=== PATIENT | female | born 1960 | race Caucasian/White ===

== ENCOUNTER 2020-05-30 11:33 | Observation (INO) | payer OTHER ==
[~2020-05-30] VITALS: Ht 165.1 cm; Wt 104.8 kg
[2020-05-30] VITALS (12 sets, daily range): BP systolic 145–171; BP diastolic 63–87
--- NOTE | ~2020-05-30 | D ---
[address] [address] DISCHARGE SUMMARY Name: DEVEN GUNN Room: [address] Kristopher#: [id number] Admission: 05/30/20 Attend Phys: Ciro Lal MD Discharge: 05/31/20 Date of : 60 Report #: [id number] THIS REPORT FOR: cc: Edgard Garcia. Edgard Dey. KENY ~ Ciro Lal MD [facility] DATE OF SERVICE: 05/31/2020 DISCHARGE DIAGNOSES: 1. Coronary artery disease. 2. Unstable angina. 3. Dyslipidemia. 4. Percutaneous coronary intervention to the diagonal branch of the left anterior descending coronary artery. PROCEDURES DURING HOSPITALIZATION: 1. Coronary angiography. 2. Left heart catheterization. 3. Percutaneous coronary intervention to the diagonal branch of the left anterior descending coronary artery. HOSPITAL COURSE: The patient was brought to the cardiac catheterization laboratory on 05/30/2020 electively with complaints of progressive exertional chest discomfort and shortness of breath, consistent with unstable angina. The patient underwent cardiac catheterization with coronary angiography that revealed a 95% stenosis of a large branched first diagonal branch of the left anterior descending coronary artery. The remaining coronary vessels were without significant stenosis. The patient underwent percutaneous coronary intervention with 2 drug-eluting stents placed to the ostial to proximal portion of the first diagonal vessel without complication. The patient's post-intervention recovery was unremarkable and she is being discharged to home in stable condition. DISCHARGE MEDICATIONS: Will include aspirin 81 mg daily, atorvastatin 40 mg daily, Effient 10 mg daily, Flexeril 10 mg a half a tablet p.r.n. muscle spasms, Benadryl 25 mg daily, iron sulfate one tablet b.i.d., hydroxyzine 10 mg t.i.d. p.r.n., Synthroid 125 mcg daily, lisinopril 20 mg daily, melatonin 10 mg as directed, glucosamine chondroitin complex as directed, Bystolic 10 mg daily, Prilosec 20 mg b.i.d., potassium chloride 20 mEq daily, Zoloft 100 mg daily, Carafate 1 gram b.i.d., trospium ER [place] [address] DISCHARGE SUMMARY Name: MIGUEL GUNNA Alyssia Room: [address] MBuddyRuBddy#: [id number] Admission: 05/30/20 Attend Phys: Ciro Lal MD Discharge: 05/31/20 Date of : 60 Report #: [id number] DISPOSITION: The patient will follow up with Cardiology office in 2 weeks. By: 1730 1739[facility] Park[facility]haval Lal MD, [facility] /nt
--- NOTE | ~2020-05-30 | H ---
[address] [address] HISTORY AND PHYSICAL Name: DEVEN GUNN Room: [address] Gianfranco Summers#: [id number] Admission: 05/30/20 Attend Phys: Ciro Lal MD Discharge: 05/31/20 Date of : 60 Report #: [id number] THIS REPORT FOR: cc: Edgard Garica. Edgard Dey. KENY ~ [facility],Medical Records Staff Please refer to the History and Physical performed in the physician's office. By: 1444Medical Records Staff [facility] /PRETTY
[~2020-05-30 11:33] MED LIST: ACETAMINOPHEN-1 EAC3 PO; ASPIR 8181 MG PO; ASPIRIN EC81 M1 PO; ASPIRIN81 M2 PO; AUGMENTIN 875875 M1 PO; BENADRYL25 MG PO; BYSTOLIC 5 MG5 M1 PO; BYSTOLIC10 MG PO; CARAFATE 1 GM TA1 G1 PO; CHLORTHALIDONE25 MG PO; COMPAZINE10 M1; COMPAZINE10 MG PO; CRANBERRY400 MG PO; EZFE 200200 MG PO; FAMOTIDINE 20 M20 MG PO; FIORICET 50-321 EACH PO; FIORINAL 50-321 EACH PO; FISH OIL 1,0001 EAC5 PO; FISH OIL 1,001000 M1 PO; FISH OIL 1,2001 EAC3 PO; FLEXERIL PO; GLUCOSAMINE &1 EAC1 PO; HYDROXYZINE HCL10 M2 PO; KLOR-CON M2020 MEQ PO; LEVOXYL88 MCG PO; LIPITOR40 MG PO; LISINOPRIL20 MG PO; LISINOPRIL40 MG PO; MECLIZINE HCL25 M1 PO; MEDROLDOSEPACK PO; MELATONIN10 M3 PO; NAPROSYN500 MG PO; NORCO 5-325 TA1 EACH PO; NORCO 7.5-3251 EACH PO; OMEPRAZOLE 20 M20 M1 PO; PRINIVIL40 MG PO; PROTONIX40 M2 PO; REGLAN 10 MG TA10 M1 PO; SANCTURA XR60 M1 PO; SANCTURA XR60 M2 PO; SLOW RELEASE I140 MG PO; SLOW RELEASE I142 MG PO; SYNTHROID125 MC1 PO; TYLENOL ALLERG1 EA11; TYLENOL PM PO; ULTRAM 50MG TAB50 MG PO; ZOLOFT100 MG; ZOLOFT100 MG PO
[2020-05-30 12:41] LABS: HEMATOCRIT 42.3 % (37.0-47.0); HEMOGLOBIN 14.2 gm/dL (12.0-15.0); MCHC 33.7 g/dL (28.0-37.0); MCV 89.1 fL (80.0-100.0); MPV 7.3 fl. (7.2-11.1); RBC 4.74 mil/uL (4.20-5.00); RDW-CV 13.8 % (10.5-14.5); WBC 6.3 thou/uL (4.0-11.0)
[2020-05-30 12:45] LABS: APTT 23.7 Seconds (25.0-31.3); PROTIME 10.9 Seconds (9.20-11.50)
[2020-05-30 12:50] LABS: ALBUMIN 3.8 g/dL (3.4-5.0); ALKALINE PHOSPHATASE 108 U/L (46-116); ANION GAP 8 mmol/L (7-16); BUN 13 mg/dL (7-18); CALCIUM 9.7 mg/dL (8.5-10.1); CHLORIDE 102 mmol/L (98-107); CHOLESTEROL 267 mg/dL (<200); CO2 28 mmol/L (21-32); CREATININE 1.1 mg/dL (0.6-1.3); GLUCOSE 89 mg/dL (70-99); HDL CHOLESTEROL 64 mg/dL (>40); LDL CHOLESTEROL 174 mg/dL (<100); POTASSIUM 3.8 mmol/L (3.5-5.1); SGOT 14 U/L (15-37); SGPT 16 U/L (30-65); SODIUM 138 mmol/L (136-145); TC:HDL 4.2 Ratio (Not establshd); TOTAL BILIRUBIN 0.6 mg/dL (<0.1-1.0); TOTAL PROTEIN 7.6 g/dL (6.4-8.2); TRIGLYCERIDE 145 mg/dL (<150); VLDL 29 mg/dL (<40)
[2020-05-30 12:55] LABS: SERUM ASSESSMENT S
--- NOTE | 2020-05-30 16:21 | EKG ---
[place] [address] ELECTROCARDIOGRAM REPORT Name: DEVEN GUNN Room: [address]R.#: [id number] Admission: 05/30/20 Attend Phys: Ciro Lal, Discharge: Date of : 60 Date of Service: 05/30/20 1258 Report #: [id number] THIS REPORT FOR: //name// [facility] Test Date: 2020-05-30 Test Time: 12:58:47 Pat Name: DEVEN GUNN Department: Room: [facility] Gender: F Negative Cleaner: : 1960 Requested By: Ciro Lal Order Number: [id number] Giselle MD: Jabari Puentes Measurements Intervals [place] Rate: 68 P: 38 MN: 214 QRS: -37 QRSD: 165 T: 118 QT: 481 QTc: 512 Interpretive Statements Sinus rhythm Prolonged [place] interval Left bundle branch block Compared to ECG 10/21/2012 17:13:06 First degree AV block now present Left bundle-branch block now present Electronically Signed On 05-30-2020 16:21:18 PAPER PRODUCTS SUPERVISOR by Jabari Puentes [email or web address] <ELECTRONICALLY SIGNED> By: Jabari Puentes MD, [facility] 05/30/20 1621 1258 1258 Jabari Puentes MD, [facility] /EPI
--- NOTE | 2020-05-30 16:22 | EKG ---
[place] [address] ELECTROCARDIOGRAM REPORT Name: DEVEN GUNN Room: [address]R.#: [id number] Admission: 05/30/20 Attend Phys: Ciro Lal, Discharge: Date of : 60 Date of Service: 05/30/20 1443 Report #: [id number] THIS REPORT FOR: //name// [facility] Test Date: 2020-05-30 Test Time: 14:43:41 Pat Name: DEVEN GUNN Department: Room: [facility] Gender: F Talend Developer: RUIZ : 1960 Requested By: Ciro Lal Order Number: [id number] Giselle MD: Jabari Puentes Measurements Intervals [place] Rate: 65 P: 63 WI: 215 QRS: -36 QRSD: 160 T: 124 QT: 516 QTc: 537 Interpretive Statements Sinus rhythm Prolonged [place] interval Left bundle branch block Compared to ECG 05/30/2020 12:58:47 No significant changes Electronically Signed On 05-30-2020 16:22:41 RN ASSESSMENT by Jabari Puentes [email or web address] <ELECTRONICALLY SIGNED> By: Jabari Puentes MD, [facility] 05/30/20 1622 1443 1443 Jabari Puentes MD, [facility] /EPI
[2020-05-31] VITALS: BP 135/77
--- NOTE | 2020-05-31 02:15 | NUR ---
PATIENT HAS REMAINED ALERT AND ORIENTED X 4 THROUGHOUT THE SHIFT AND RESTING QUIETLY ON HOURLY ROUNDS. UP TO BR TO VOID WITH STEADY GAIT. DRESSING RIGHT GROIN UNCHANGED OF THIS WRITING FROM SHIFT START. MIN SOFT BRUISE DISTAL OF CATH SITE AND SCANT SEROSANGUINEOUS DRAINAGE ON GAUZE. EQUAL BILAT PEDAL AND RADIAL PULSES PRESENT. DENIES CHEST PAIN. VITAL SIGNS STABLE ON ROOM AIR. SR/BBB ON MONITOR. CONTINUE TO MONITOR.
[2020-05-31 04:00] VITALS: BP 142/81
[2020-05-31 05:51] LABS: HEMATOCRIT 36.7 % (37.0-47.0); HEMOGLOBIN 12.4 gm/dL (12.0-15.0); MCH 30.2 pg (26.0-34.0); MCHC 33.9 g/dL (28.0-37.0); MCV 89.1 fL (80.0-100.0); MPV 7.4 fl. (7.2-11.1); RBC 4.12 mil/uL (4.20-5.00); RDW-CV 13.5 % (10.5-14.5); WBC 5.9 thou/uL (4.0-11.0)
[2020-05-31 06:10] LABS: ALBUMIN 3.1 g/dL (3.4-5.0); CALCIUM 9.3 mg/dL (8.5-10.1); CREATININE 1.1 mg/dL (0.6-1.3); POTASSIUM 3.8 mmol/L (3.5-5.1); TOTAL BILIRUBIN 0.6 mg/dL (<0.1-1.0); TOTAL PROTEIN 6.4 g/dL (6.4-8.2)
--- NOTE | 2020-05-31 06:58 | NUR ---
NO CHANGE IN PREVIOUS END OF SHIFT NOTE.
[2020-05-31 08:00] VITALS: BP 146/68
--- NOTE | 2020-05-31 08:51 | NUR ---
CM SPOKE TO THE PT TO DISCUSS CM ASSESSMENT. PT A&O, INDEPENDENT WITH ADL'S, ACTIVE, AND WORKS OUTSIDE THE HOME. PT RESIDES AT HOME WITH SPOUSE. PT USES 0 DME. PT HAS 0 HX OF HH OR SNF. NO CM D/C PLANNING NEEDS ANTICIPATED. CM WILL REMAIN AVAILABLE TO ASSIST AND FOLLOW NEEDED.
[2020-05-31] MEDS ORDERED: NITROGLYCERIN0.4 MG SUBLING (09:36)
[2020-05-31] MEDS ORDERED: EFFIENT10 MG PO (09:36)
--- NOTE | 2020-05-31 10:15 | CARD ---
[address] [address] CARDIAC CATH REPORT Name: DEVEN GUNN Room: [address] M.RBuddy#: [id number] Admission: 05/30/20 Attend Phys: Ciro Lal MD Discharge: Date of : 60 Report #: [id number] THIS REPORT FOR: cc: Edgard Garcia. Edgard Dey. KENY ~ Jabari Puentes MD [facility] APPROVED REPORT Study performed: 05/30/2020 12:47:18 Patient Details Patient Status: Out-Patient Room #: The patient is a 60 year-old female Event Personnel Robb Garnett RTR Monitor, Meliza Hurt RTR Scrub, Janette De Dios RN RN, Ciro Lal Nurse Instructor, Jabari Puentes Autocad Electrical Designer Procedures Performed Left Heart Cath w/or w/o Coronaries [id number] [facility] IRENE Place w/wo Plasty Addl BR DIAG 1 C9601 DESADDL Hemostasis w/ Angioseal Indication Positive stress test Risk Factors Hypercholesterolemia, Hypertension Admission/Lab Medications/Medications given during procedure Lidocaine Subcut 20 ml, Fentanyl IV 25 mcg, Midazolam (Versed) IV 1 mg, Adenosine IV 6 mg, Angiomax IV 16 ml, Angiomax IV 16 ml, Angiomax IV 37 ml per hr, Nitroglycerin IC 200 mcg, Effient PO 60 mg, Aspirin PO 325 mg Procedure Narrative The patient was brought electively to the Cardiac Catheterization Laboratory and was prepped and draped in a sterile manner. The right femoral was infiltrated with 2% Lidocaine subcutaneous anesthesia. A [place] 6 FR sheath was inserted into the right femoral artery. Coronary angiography was performed using coronary diagnostic catheters. The right coronary system [place] [address] CARDIAC CATH REPORT Name: DEVEN GUNN Room: [address] M.R.#: [id number] Admission: 05/30/20 Attend Phys: Ciro Lal MD Discharge: Date of : 60 Report #: [id number] a Diagnostic JR4 6Fr catheter. The left coronary system was accessed and visualized with a Diagnostic JL4 6Fr catheter. The left ventricle was accessed and visualized with a Diagnostic Pigtail 6Fr catheter. Left ventricular/Aortic Valve gradient assessed via catheter pullback. Left ventriculogram was performed in MCCORD projection. Pre-demployment femoral angiogram was performed . Closure device was deployed with a 6 Fr Angioseal. The patient tolerated the procedure well and there were no complications associated with the procedure. There was no hematoma. Intraoperative Conscious Sedation Sedation start time: 1320 Case end Time: 1410 Fentanyl 50 mcg Versed 2 mg Fluoro Time: 13.6 minutes Dose: DAP [id number] cGycm2 3028.63 mGy Contrast Type and Amount: Visipaque 320 ml Diagnostic Cath Left Main 0% narrowing LAD 40% proximalmid LAD stenosis with 90% proximal first diagonal stenosis Circumflex Nondominant vessel with 30% mid vessel narrowing Right Coronary Dominant vessel with 40% ostial proximal narrowing and 30% narrowing at the acute margin Left Ventriculography The left ventricle is normal in size with normal contractility. The left ventricular ejection fraction is estimated to be 55%. Left ventricular wall motion abnormalities are not present. There is no mitral insufficiency. Hemodynamics The aortic pressure is 140/79 mmHg with a mean of 96 mmHg. The left ventricular pressure is 146/78 mmHg with a mean of mmHg. The left ventricular end diastolic pressure is 20 mmHg. There was no gradient across the aortic valve upon pullback. PCI Technique Lesion Anticoagulation was achieved with Angiomax. Patient was preloaded with Angiomax IV 16 ml. Percutaneous coronary intervention was performed on the first diagnonal branch segment. The lesion stenosis prior to intervention was 90% with JOSE MANUEL 3 flow. A 6F XB LAD 3.5 Guide Catheter was used to engage the Left ostium. A IG: OLIVIER 190[address] [place] [address] CARDIAC CATH REPORT Name: DEVEN GUNN Room: [address] M.R.#: [id number] Admission: 05/30/20 Attend Phys: Ciro Lal MD Discharge: Date of : 60 Report #: [id number] Interventional Guidewire was used to cross the lesion. BALLOON DILATION A Balloon catheter Mini Trek RX 2.0 X 8 was inserted and inflated up to 8.00atm for 8seconds. Additional Inflation: 10.00atm for 10seconds. Additional Inflation: 14.00atm for 10seconds. STENT DEPLOYMENT A drug-eluting stent Carlos RX Stent 2.0X8mm was inserted and inflated up to 10.00atm for 8seconds. Additional Inflation: 14.00atm for 15seconds. Additional Inflation: 14.00atm for 9seconds. An additional Drug-Eluting Stent CARLOS RX Stent 2.0X8mm was inserted and inflated up to 8.00atm for 9 seconds. Additional Inflation: 10.00atm for 6 seconds. Additional Inflation: 12.00atm for 7 seconds Final angiography reveals 10 % stenosis with JOSE MANUEL 3 flow. Conclusion 1. Significant coronary artery disease characterized by the following: A 40% proximalmid LAD stenosis with 90% proximal first diagonal stenosis B 30% narrowing in the midportion of the nondominant circumflex C 40% ostial proximal right coronary narrowing with 30% narrowing at the acute margin of this dominant vessel 2. Normal left ventricular systolic function, estimated ejection fraction 55% 3. Moderate elevation of left ventricular end-diastolic pressure at rest 4. Successful PCI with deployment of 2 drug-eluting stents at the site of 90% proximal first diagonal stenosis with 10% residual narrowing and JOSE MANUEL-3 flow to the distal vessel Recommendations Cardiac Risk Reduction Program Aggressive Medical [place] [address] CARDIAC CATH REPORT Name: DEVEN GUNN Room: [address] Gianfranco Summers#: [id number] Admission: 05/30/20 Attend Phys: Ciro Lal MD Discharge: Date of : 60 Report #: [id number] Aspirin (any) Prasugrel Diagnostic Cath Approved by: Ciro Lal MD Date/Time: 05/31/2020 10:14:16 <ELECTRONICALLY SIGNED> By: Jabari Puentes MD, FACC 05/31/20 1015 1015 1015Jojean-paul Puentes MD, FACC /INF
[2020-05-31 10:55] VITALS: BP 150/63
[2020-05-31 11:08] VITALS: BP 150/63
--- NOTE | 2020-05-31 11:25 | NUR ---
ASSUMED CARE OF PATIENT THIS AM AT 0730. PATIENT IS ALERT AND ORIENTED X 4. SHE DENIES CHEST PAIN AND SOA. DR IN TO ROUND AND DISCHARGE ORDERS WERE WRITTEN. SALINE LOCK AND TELE MONITOR DISCONTINED. PATIENT GIVEN DISCHARGE INSTRUCTIONS. DISCHARGED TO HOME WITH PER W/C WITH BELONGINGS.
--- NOTE | 2020-05-31 15:27 | EKG ---
[place] [address] ELECTROCARDIOGRAM REPORT Name: DEVEN GUNN Room: [address]#: [id number] Admission: 05/30/20 Attend Phys: Ciro Lal, Discharge: 05/31/20 Date of : 60 Date of Service: 05/31/20 0845 Report #: [id number] THIS REPORT FOR: //name// [facility] Test Date: 2020-05-31 Test Time: 08:45:07 Pat Name: DEVEN GUNN Department: Room: [facility] Gender: F Tandem Mill Sticker: : 1960 Requested By: Ciro Lal Order Number: [id number] Reading MD: Jabari Puentes Measurements Intervals [place] Rate: 69 P: 44 TN: 204 QRS: -37 QRSD: 165 T: 127 QT: 488 QTc: 523 Interpretive Statements Sinus rhythm Borderline prolonged [place] interval Left bundle branch block Compared to ECG 05/30/2020 14:43:41 No significant changes Electronically Signed On 05-31-2020 15:26:52 DIESEL PILE HAMMER OPERATOR by Jabari Puentes [email or web address] <ELECTRONICALLY SIGNED> By: Jabari Puentes MD, [facility] 05/31/20 1526 0845 0845 Jabari Puentes MD, [facility] /EPI
== END 2020-05-31 12:45 | disposition home or self-care (01) ==
LOC: M.CL 11:33 → M.2W 14:21 → M.TBA-ER 14:21 → M.2W 15:53
PROVIDERS: ADMIT Internal Medicine Cardiovascular Disease; ATTEND Internal Medicine Cardiovascular Disease
DX: I25.110 Atherosclerotic heart disease of native coronary artery with unstable angina pectoris (principal); E78.5 Hyperlipidemia, unspecified